=== PATIENT | female | born 1995 | race Asian ===

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

== ENCOUNTER 2018-05-27 12:28 | Emergency (ER) | payer MEDICAID ==
[2018-05-27] MEDS ORDERED: PEPCID IV ONE (13:44)
[2018-05-27] MEDS ORDERED: NACL 0.9% 1000 ML 1,000 ML IV ONE (13:44)
[2018-05-27] MEDS ORDERED: ZOFRAN IV ONE (13:44)
[2018-05-27] MEDS ORDERED: BENTYL IM ONE (13:44)
--- NOTE | 2018-05-27 14:02 | Emergency Department Report ---
Vomiting/Diarrhea - HPI Chief Complaint: Abdominal Pain Stated Complaint: STOMACH PAIN/VOMITING BLOOD Time Seen by Provider: 05/27/18 13:23 Duration: 1 Day Severity: moderate Nausea/Vomiting Severity: Moderate Diarrhea Severity: Mild Pain Location: Epigastric Pain Severity: Mild Symptoms: Yes Watery Diarrhea, No Bloody diarrhea, No Fever, No Able to Tolerate Fluids, No Recent Unusual Foods, No Recent Untreated Water, No Recent use of Antibiotics, No Family w/ Similar Symptoms, No Contacts w/ Similar Symptoms, No Rash, No Hematuria, No Recent URI Symptoms Other History: Pt states that she saw blood streaks in her vomit the last several times she vomited ED Review of Systems ROS: Stated complaint: STOMACH PAIN/VOMITING BLOOD Other details as noted in HPI Comment: All other systems reviewed and negative ED Past Medical Hx - Past Medical History Previous Medical History?: No - Surgical History Past Surgical History?: No - Social History Smoking Status: Current Every Day Smoker Substance Use Type: None - Medications Home Medications: Home Medications Medication Instructions Recorded Confirmed Last Taken Type Naproxen [Naprosyn 125 mg/5 ml] 500 mg PO Q12H PRN #30 bottle 11/15/14 Unknown Rx Sulfamethoxazole/Trimethoprim 1 each PO BID #6 tablet 11/15/14 Unknown Rx [Bactrim DS TAB] Dicyclomine [Bentyl] 10 mg PO QID #15 capsule 05/27/18 Unknown Rx Famotidine [Pepcid] 40 mg PO QHS #10 tablet 05/27/18 Unknown Rx Ondansetron [Zofran Odt] 4 mg PO Q8HR PRN #10 tab.rapdis 05/27/18 Unknown Rx Vomiting Diarrhea Exam - Exam General: Vital signs noted. No distress. Alert and acting appropriately. HEENT: Yes Moist Mucous Membranes, No Pharyngeal Erythema, No Pharyngeal Exudates, No Rhinorrhea, No Conjuctival Injection, No Frontal Tenderness, No Maxillary Tenderness Neck: No Adenopathy, No Rigidity Lungs: Yes Clear Lung Sounds, Yes Good Air Exchange, No Wheezes, No Stridor, No Cough, No Nasal Flaring, No Retractions, No Use of Accessory Muscles Heart exam: Regular: Yes, Murmur: No, Tachycardia: No Abdomen: Tenderness: Yes (mild epigastric tenderness), Peritoneal Signs: No, Distention: No, Hyperactive Bowel sounds: No Skin exam: Rash: No, Edema: No, Normal turgor: Yes Neurologic: Alert and oriented, no deficits. Musculoskeletal: Unremarkable. ED Course Vital Signs 05/27/18 05/27/18 12:32 13:20 Temperature 98.7 F Pulse Rate 90 Respiratory 16 16 Rate Blood Pressure 128/83 O2 Sat by Pulse 98 Oximetry ED Medical Decision Making - Lab Data Lab Results 05/27/18 Range/Units 13:54 Urine Color Yellow (Yellow) Urine Turbidity Slightly-cloudy (Clear) Urine pH 5.0 (5.0-7.0) Ur Specific [place] 1.025 (1.003-1.030) Urine Protein <15 mg/dl (Negative) mg/dL Urine Glucose (UA) Neg (Negative) mg/dL Urine Ketones Neg (Negative) mg/dL Urine Blood Sm (Negative) Urine Nitrite Neg (Negative) Urine Bilirubin Neg (Negative) Urine Urobilinogen < 2.0 (<2.0) mg/dL Ur Leukocyte Esterase Lg (Negative) Urine WBC (Auto) 12.0 H (0.0-6.0) /HPF Urine RBC (Auto) 3.0 (0.0-6.0) /HPF U Epithel Cells (Auto) 10.0 (0-13.0) /HPF Urine Bacteria (Auto) 1+ (Negative) /HPF Urine Mucus 2+ /HPF Urine HCG, Qual Negative (Negative) - Medical Decision Making Patient receive IV fluids as well as meds for symptomatic relief. Patient states her nausea is improving as well as epigastric discomfort. Patient has not vomited since she received antiemetics. Patient be discharged home with additional meds for symptomatic relief will be discharged in stable condition. Critical care attestation.: If time is entered above; I have spent that time in minutes in the direct care of this critically ill patient, excluding procedure time. ED Disposition Clinical Impression: Viral gastroenteritis Disposition: DC-01 TO HOME OR SELFCARE Is pt being admited?: No Does the pt Need Aspirin: No Condition: Stable Instructions: Gastroenteritis (ED) Time of Disposition: 15:21
[2018-05-27 14:08] LABS: Bacteria,Urine 1+ /HPF (Negative); Bilirubin,Urine NEG (Negative); Blood,Urine SM (Negative); Color,Urine Yellow (Yellow); HCG Qualitative,Urine Negative (Negative); Mucus,Urine 2+ /HPF; Protein,Urine <15 mg/dL mg/dL (Negative); Urobilinogen,Urine < 2.0 mg/dL (<2.0)
[2018-05-27 15:34] VITALS: BP 114/74
== END 2018-05-27 16:19 | disposition home or self-care (01) ==
LOC: ED 12:28
DX: A08.4 Viral intestinal infection, unspecified (principal); F17.200 Nicotine dependence, unspecified, uncomplicated
CPT/HCPCS: 81001; 81025; 96361; 96372; 96374; 96375; 99283; J0500; J2405; J7030

== ENCOUNTER 2020-11-25 17:29 | Emergency (ER) | payer MEDICAID ==
[2020-11-25 20:54] LABS: Hematocrit 40.6 % (30.3-42.9); Hemoglobin 13.6 gm/dl (10.1-14.3); Mean Corpuscular HGB Conc 34 % (30-34); Mean Corpuscular Volume 85 fl (79-97); Platelet Count 393 K/mm3 (140-440); Red Blood Count 4.76 M/mm3 (3.65-5.03); Red Cell Distribution Width 13.4 % (13.2-15.2)
[2020-11-25 21:12] LABS: Alanine Aminotransferase 42 units/L (7-56); Albumin 4.7 g/dL (3.9-5); BUN/Creatinine Ratio 9; Blood Urea Nitrogen 10 mg/dL (7-17); Calcium 9.3 mg/dL (8.4-10.2); Hemolysis Index 21
[2020-11-25 22:15] LABS: Bacteria,Urine 3+ /HPF (Negative); Bilirubin,Urine NEG (Negative); Blood,Urine LG (Negative); Color,Urine Yellow (Yellow); Mucus,Urine 3+ /HPF; Urobilinogen,Urine < 2.0 mg/dL (<2.0)
[2020-11-25 22:18] LABS: WBC,Urine > 182.0 /HPF (0.0-6.0)
[2020-11-25 22:18] LABS: RBC Morphology Normal; Total Cells Counted 100
[2020-11-26] MEDS ORDERED: ONDANSETRON 4 MG/2 ML INJ IV ONE (00:57)
[2020-11-26] MEDS ORDERED: MORPHINE 4 MG/1 ML INJ IV ONE (00:57)
[2020-11-26] MEDS ORDERED: FAMOTIDINE 20 MG/2 ML INJ IV ONE (00:57)
[2020-11-26] MEDS ORDERED: cefTRIAXone/NS 1 GM/50 ML 1 GM/50 ML BAG IV ONE (01:58)
[2020-11-26] MEDS ORDERED: SODIUM CHLORIDE 0.9% 1000 ML 1,000 ML IV ONE (02:31)
--- NOTE | 2020-11-26 03:30 | Cat Scan Report ---
CT ABDOMEN AND PELVIS WITH CONTRAST INDICATION / CLINICAL INFORMATION: Abdominal pain. TECHNIQUE: Axial CT images were obtained through the abdomen and pelvis after 100 mL Omnipaque [address] scans at this location are performed using CT dose reduction for ALARA by means of automated exposure control. COMPARISON: None available. FINDINGS: LOWER CHEST: Lung bases are clear. Ovoid soft tissue nodule in the medial right breast measuring 2.0 x 1.7 cm. LIVER: No significant abnormality. GALLBLADDER: No significant abnormality. BILE DUCTS: No significant abnormality. PANCREAS: No significant abnormality. SPLEEN: No significant abnormality. ADRENALS: No significant abnormality. RIGHT KIDNEY / URETER: 3 mm stone in the distal right ureter just proximal to the ureterovesical junc tion with mild right hydroureteronephrosis. LEFT KIDNEY / URETER: No significant abnormality. STOMACH / SMALL BOWEL: No significant abnormality. COLON: No significant abnormality. APPENDIX: No significant abnormality. PERITONEUM: No free fluid. No free air. No fluid collection. LYMPH NODES: No significant adenopathy. AORTA / ARTERIES: No significant abnormality. IVC / VEINS: No significant abnormality. URINARY BLADDER: No significant abnormality. REPRODUCTIVE ORGANS: No significant abnormality. ADDITIONAL FINDINGS: None. SKELETAL SYSTEM: No significant abnormality. IMPRESSION: 1. 3 mm stone in the distal right ureter with mild right hydroureteronephrosis. 2. No inflammatory process or bowel obstruction. 3. 2 cm soft tissue nodule in the medial right breast. Clinical correlation is recommended. Nonemerge nt follow-up right breast ultrasound is recommended. Signer Name: Demetrice Gibbs MD Signed: 11/26/2020 3:25 AM Workstation Name: [id number]
[2020-11-26] MEDS ORDERED: KETOROLAC 30 MG/1 ML INJ IV ONE (03:53)
[2020-11-26] MEDS ORDERED: TAMSULOSIN 0.4 MG CAP PO ONE (03:53)
--- NOTE | 2020-11-26 04:30 | Emergency Department Report ---
ED Abdominal Pain HPI - General Chief Complaint: Abdominal Pain Stated Complaint: ABD PAIN Source: patient Mode of arrival: Stretcher Limitations: No Limitations - History of Present Illness Initial Comments: Patient is a nulliparous 25-year-old white female with no past medical history presents to the ED with complaint of acute onset persistent severe right and right flank pain with intractable nausea and vomiting for the last 12 hours. Patient also states that the pain has been persistent, constant and worse with nausea and vomiting and occasionally the pain radiates to the right lower quadrant area and suprapubic area. Patient states that she has not been able to keep anything down in the last 12 hours because of intractable nausea and vomiting and pain. Patient denies dysuria, urinary frequency and urgency, vaginal bleeding, vaginal discharge, dizziness, syncope, fever, chills, cough, traumatic injury, heavy lifting, hematemesis, chest pain or shortness of breath or low back pain MD Complaint: abdominal pain (Right upper quadrant pain), flank pain (Right flank pain), other (Nausea and vomiting) -: Sudden, hour(s) (12) Location: RUQ, R flank Radiation: RUQ, R flank Migration to: no migration Severity scale (0 -10): 8 Quality: cramping, aching, sharp Consistency: constant Improves With: nothing Worsens With: vomiting Associated Symptoms: denies other symptoms, nausea, vomiting, anorexia. denies: diarrhea, fever, chills, dysuria, hematemesis, hematochezia, melena, hematuria, syncope, other - Related Data LMP Date: 10/27/20 Previous Rx's Medication Instructions Recorded Last Taken Type Naproxen (Nf) [Naprosyn 125 mg/5 500 mg PO Q12H PRN #30 bottle 11/15/14 Unknown Rx ml] Sulfamethoxazole/Trimethoprim 1 each PO BID #6 tablet 11/15/14 Unknown Rx [Bactrim DS TAB] Dicyclomine [Bentyl] 10 mg PO QID #15 capsule 05/27/18 Unknown Rx Famotidine [Pepcid] 40 mg PO QHS #10 tablet 05/27/18 Unknown Rx Ondansetron [Zofran Odt] 4 mg PO Q8HR PRN #10 tab.rapdis 05/27/18 Unknown Rx Docusate Sodium [Dok] 100 mg PO DAILY #30 tablet 11/26/20 Unknown Rx HYDROcodone/APAP 5-325 [[place] 1 each PO Q6HR PRN #12 tablet 11/26/20 Unknown Rx 5/325] Ketorolac [Toradol] 10 mg PO Q8H PRN #20 tablet 11/26/20 Unknown Rx Ondansetron [Zofran Odt] 4 mg PO Q8HR PRN #20 tab.rapdis 11/26/20 Unknown Rx Sulfamethoxazole/Trimethoprim 1 each PO Q12H #20 tablet 11/26/20 Unknown Rx [Bactrim DS TAB] Tamsulosin [Flomax] 0.4 mg PO QDAY #10 cap 11/26/20 Unknown Rx Allergies Allergy/AdvReac Type Severity Reaction Status Date / Time No Known Allergies Allergy Verified 05/27/18 12:32 ED Review of Systems ROS: Stated complaint: ABD PAIN Other details as noted in HPI Constitutional: denies: chills, fever Eyes: denies: eye pain, eye discharge, vision change ENT: denies: ear pain, throat pain Respiratory: denies: cough, shortness of breath, wheezing Cardiovascular: denies: chest pain, palpitations Endocrine: no symptoms reported Gastrointestinal: abdominal pain (Right flank and right upper quadrant pain), nausea, vomiting. denies: diarrhea Genitourinary: denies: urgency, dysuria, discharge Musculoskeletal: denies: back pain, joint swelling, arthralgia Skin: denies: rash, lesions Neurological: denies: headache, weakness, paresthesias Psychiatric: denies: anxiety, depression Hematological/Lymphatic: denies: easy bleeding, easy bruising ED Past Medical Hx - Social History Smoking Status: Current Every Day Smoker Substance Use Type: None - Medications Home Medications: Home Medications Medication Instructions Recorded Confirmed Last Taken Type Naproxen (Nf) [Naprosyn 125 mg/5 500 mg PO Q12H PRN #30 bottle 11/15/14 Unknown Rx ml] Sulfamethoxazole/Trimethoprim 1 each PO BID #6 tablet 11/15/14 Unknown Rx [Bactrim DS TAB] Dicyclomine [Bentyl] 10 mg PO QID #15 capsule 05/27/18 Unknown Rx Famotidine [Pepcid] 40 mg PO QHS #10 tablet 05/27/18 Unknown Rx Ondansetron [Zofran Odt] 4 mg PO Q8HR PRN #10 tab.rapdis 05/27/18 Unknown Rx Docusate Sodium [Dok] 100 mg PO DAILY #30 tablet 11/26/20 Unknown Rx HYDROcodone/APAP 5-325 [[place] 1 each PO Q6HR PRN #12 tablet 11/26/20 Unknown Rx 5/325] Ketorolac [Toradol] 10 mg PO Q8H PRN #20 tablet 11/26/20 Unknown Rx Ondansetron [Zofran Odt] 4 mg PO Q8HR PRN #20 tab.rapdis 11/26/20 Unknown Rx Sulfamethoxazole/Trimethoprim 1 each PO Q12H #20 tablet 11/26/20 Unknown Rx [Bactrim DS TAB] Tamsulosin [Flomax] 0.4 mg PO QDAY #10 cap 11/26/20 Unknown Rx ED Physical Exam - General Limitations: No Limitations General appearance: alert, in no apparent distress - Head Head exam: Present: atraumatic, normocephalic, normal inspection - Eye Eye exam: Present: normal appearance, PERRL, EOMI Pupils: Present: normal accommodation - ENT ENT exam: Present: normal exam, normal orophraynx, mucous membranes moist, TM's normal bilaterally, normal external ear exam - Neck Neck exam: Present: normal inspection, full ROM - Respiratory Respiratory exam: Present: normal lung sounds bilaterally. Absent: respiratory distress, wheezes, rales, rhonchi, chest wall tenderness, accessory muscle use, decreased breath sounds, prolonged expiratory - Cardiovascular Cardiovascular Exam: Present: regular rate, normal rhythm, normal heart sounds. Absent: systolic murmur, diastolic murmur, rubs, gallop - GI/Abdominal GI/Abdominal exam: Present: soft, tenderness (Palpable right upper quadrant and right flank tenderness, negative Lee sign), normal bowel sounds. Absent: guarding, rebound, hyperactive bowel sounds, hypoactive bowel sounds - Extremities Exam Extremities exam: Present: normal inspection, full ROM, normal capillary refill - Back Exam Back exam: Present: normal inspection, full ROM. Absent: tenderness, CVA tenderness (R), CVA tenderness (L), muscle spasm, paraspinal tenderness - Neurological Exam Neurological exam: Present: alert, oriented X3, CN II-XII intact, normal gait, reflexes normal - Psychiatric Psychiatric exam: Present: normal affect, normal mood - Skin Skin exam: Present: warm, dry, intact, normal color. Absent: rash ED Course Vital Signs 11/25/20 17:45 Temperature 98.5 F Pulse Rate 83 Respiratory 20 Rate Blood Pressure 139/92 [Left] O2 Sat by Pulse 100 Oximetry ED Medical Decision Making - Lab Data Result diagrams: 11/25/20 20:30 11/25/20 20:30 - Radiology Data Radiology results: report reviewed, image reviewed [facility] [address] [place] [address] Cat Scan Report Signed Patient: CHAYA ROCHA MR#: [id number] : 1995 Acct:[id number] Age/Sex: 25 / F ADM Date: 11/25/20 Loc: ED Attending Dr: Ordering Physician: CHAITANYA HAMMONDS Date of Service: 11/26/20 Procedure(s): CT abdomen pelvis w con Accession Number(s): [id number] cc: CHAITANYA HAMMONDS CT ABDOMEN AND PELVIS WITH CONTRAST INDICATION / CLINICAL INFORMATION: Abdominal pain. TECHNIQUE: Axial CT images were obtained through the abdomen and pelvis after 100 mL Omnipaque [address] scans at this location are performed using CT dose reduction for ALARA by means of automated exposure control. COMPARISON: None available. FINDINGS: LOWER CHEST: Lung bases are clear. Ovoid soft tissue nodule in the medial right breast measuring 2.0 x 1.7 cm. LIVER: No significant abnormality. GALLBLADDER: No significant abnormality. BILE DUCTS: No significant abnormality. PANCREAS: No significant abnormality. SPLEEN: No significant abnormality. ADRENALS: No significant abnormality. RIGHT KIDNEY / URETER: 3 mm stone in the distal right ureter just proximal to the ureterovesical junction with mild right hydroureteronephrosis. LEFT KIDNEY / URETER: No significant abnormality. STOMACH / SMALL BOWEL: No significant abnormality. COLON: No significant abnormality. APPENDIX: No significant abnormality. PERITONEUM: No free fluid. No free air. No fluid collection. LYMPH NODES: No significant adenopathy. AORTA / ARTERIES: No significant abnormality. IVC / VEINS: No significant abnormality. URINARY BLADDER: No significant abnormality. REPRODUCTIVE ORGANS: No significant abnormality. ADDITIONAL FINDINGS: None. SKELETAL SYSTEM: No significant abnormality. IMPRESSION: 1. 3 mm stone in the distal right ureter with mild right hydroureteronephrosis. 2. No inflammatory process or bowel obstruction. 3. 2 cm soft tissue nodule in the medial right breast. Clinical correlation is recommended. Nonemergent follow-up right breast ultrasound is recommended. Signer Name: Demetrice Gibbs MD Signed: 11/26/2020 3:25 AM Workstation Name: [id number] Transcribed By: DT Dictated By: Justice Gibbs MD Electronically Authenticated By: Justice Gibbs MD Signed Date/Time: 11/26/20324 DD/ 1 TD/TT: - Medical Decision Making This is a nulliparous 25-year-old white female with no past medical history presents to the ED with complaint of acute onset persistent severe right and right flank pain with intractable nausea and vomiting for the last 12 hours. Patient also states that the pain has been persistent, constant and worse with nausea and vomiting and occasionally the pain radiates to the right lower quadrant area and suprapubic area. Patient states that she has not been able to keep anything down in the last 12 hours because of intractable nausea and vomiting and pain. In the ED, patient is alert and oriented x3 and is not in any distress. Patient appears to be in significant pain. Lab test results were reviewed and showed acute leukocytosis of 17,300 and urinalysis showed significant urinary tract infection with gross hematuria. The rest of the lab test results were reviewed and are all nonactionable. Patient was treated for pain in the ED and also given antiemetics and also treated with normal saline 1 L IV bolus x1. The abdomen pelvis CT scan with contrast showed a 3 mm stone in the distal right ureter with mild right hydroureteronephrosis. No other inflammatory process or bowel obstruction identified. On reevaluation, patient's pain is well controlled medication. Patient passed oral food challenge in the ED and was discharged home on pain medications and antibiotics and advised to follow-up with her primary care physician in 5 to 7 days for reevaluation. Patient was also given a referral to the urologist Dr. Faulkner for follow-up in 3 to 5 days. Patient was advised return to the ED immediately if symptoms get worse. - Differential Diagnosis Kidney stones; gallstones; cholecystitis; UTI; ; ovarian cyst Critical care attestation.: If time is entered above; I have spent that time in minutes in the direct care of this critically ill patient, excluding procedure time. ED Disposition Clinical Impression: Acute right flank pain, Nausea and vomiting in adult patient, Calculus of right kidney, Acute urinary tract infection Disposition: - TO HOME OR SELFCARE Is pt being admited?: No Does the pt Need Aspirin: No Condition: Stable Instructions: Abdominal Pain (ED), Flank Pain, Adult, [id number], Nausea and Vomiting, Adult, [id number], Urinary Tract Infection, Adult, [id number], Kidney Stones, [id number], Renal Colic, [id number] Additional Instructions: Follow-up test results were reviewed and showed significant urinary tract infection with acute leukocytosis. Abdomen pelvis CT scan with contrast in the ED showed a 3 mm right kidney stone on right UVJ. Therefore take pain medications as well as antibiotics with antiemetics, drink plenty of fluids, follow-up with the urologist Dr. Faulkner in 3 to 5 days for reevaluation. Consider following up with your primary care physician in 7 to 10 days for reevaluation. Return to the ED immediately if symptoms get worse. Prescriptions: Sulfamethoxazole/Trimethoprim [Bactrim DS TAB] 1 each PO Q12H #20 tablet Docusate Sodium [Dok] 100 mg PO DAILY #30 tablet Tamsulosin [Flomax] 0.4 mg PO QDAY #10 cap HYDROcodone/APAP 5-325 [[place] 5/325] 1 each PO Q6HR PRN #12 tablet PRN Reason: Pain Ketorolac [Toradol] 10 mg PO Q8H PRN #20 tablet PRN Reason: Pain Ondansetron [Zofran Odt] 4 mg PO Q8HR PRN #20 tab.rapdis PRN Reason: Nausea Referrals: [facility] [Provider Group] - 3-5 Days ALFA FAULKNER MD [Staff Physician] - 3-5 Days Forms: Work/School Release Form(ED) Time of Disposition: 04:31 Print Language: SAMI
[2020-11-26 08:09] VITALS: BP 129/78
== END 2020-11-26 05:10 | disposition home or self-care (01) ==
LOC: ED 17:29
DX: N20.0 Calculus of kidney (principal); N39.0 Urinary tract infection, site not specified; R11.2 Nausea with vomiting, unspecified; F17.200 Nicotine dependence, unspecified, uncomplicated
CPT/HCPCS: 36415; 74177; 80053; 81001; 84703; 85007; 85025; 96361; 96365; 96375; 99284; J0696; J1885; J2270; J2405; J7030; Q9967